=== PATIENT | male | born 1970 | race Caucasian/White ===

== ENCOUNTER 2019-12-19 09:49 | Emergency (ER) | payer OTHER ==
[~2019-12-19] VITALS: Ht 177.8 cm; Wt 61.2 kg
[2019-12-19 10:34] LABS: ABSOLUTE BASOPHILS 0.1 thou/uL (0.0-0.2); ABSOLUTE EOSINOPHILS 0.4 thou/uL (0.0-0.7); ABSOLUTE LYMPHOCYTES 1.4 thou/uL (0.8-5.3); ABSOLUTE MONOCYTES 0.6 thou/uL (0.0-1.2); ABSOLUTE NEUTROPHILS 3.5 thou/uL (1.6-8.1); BASOPHILS 0.9 %; EOSINOPHILS 6.2 %; HEMATOCRIT 46.9 % (42.0-52.0); HEMOGLOBIN 16.1 gm/dL (14.0-18.0); LYMPHOCYTES 23.6 %; MCH 34.5 pg (26.0-34.0); MCHC 34.4 g/dL (28.0-37.0); MCV 100.2 fL (80.0-100.0); MONOCYTES 10.3 %; MPV 9.3 fl. (7.2-11.1); NUCLEATED RBCS 0 /100WBC; PLATELET COUNT* 213 thou/uL (150-400); RBC 4.69 mil/uL (4.50-6.00)
[2019-12-19 10:41] LABS: CALCIUM 8.6 mg/dL (8.5-10.1); POTASSIUM 4.1 mmol/L (3.5-5.1)
[2019-12-19 10:42] LABS: APTT 22.1 Seconds (25.0-31.3); INR 0.9; PROTIME 9.7 Seconds (9.20-11.50)
[2019-12-19] MEDS ORDERED: PREDNISONE 20 M20 M1 PO (10:50)
[2019-12-19] MEDS ORDERED: ZPAK PO (10:50)
[2019-12-19] MEDS ORDERED: VENTOLIN HFA 1818 GM INH (10:50)
[2019-12-19 10:57] LABS: ALBUMIN 3.8 g/dL (3.4-5.0); TOTAL BILIRUBIN 0.5 mg/dL (<0.1-1.0); TOTAL PROTEIN 7.5 g/dL (6.4-8.2)
[2019-12-19 11:16] VITALS: BP 140/90
--- NOTE | 2019-12-19 13:22 | EKG ---
[place] [address] ELECTROCARDIOGRAM REPORT Name: ANNE PEDRAZA Room: [facility]#: [id number] Admission: 12/19/19 Attend Phys: Discharge: 12/19/19 Date of : 66 Date of Service: 12/19/19 1003 Report #: [id number] THIS REPORT FOR: //name// [facility] ED Test Date: 2019-12-19 Test Time: 10:03:42 Pat Name: ANNE PEDRAZA Department: Room: Gender: Senior Controls Engineer: : [id number] Requested By: Christoph Fuentes Order Number: [id number] MD: Samuel Mitchell Measurements Intervals [place] Rate: 75 P: 57 ID: 114 QRS: 73 QRSD: 83 T: 70 QT: 388 QTc: 434 Interpretive Statements Sinus rhythm Borderline short ID interval ST elev, probable normal early repol pattern No previous ECG available for comparison Electronically Signed On 12-19-2019 13:22:10 CDT by Samuel Mitchell [email or web address] <ELECTRONICALLY SIGNED> By: Samuel Mitchell MD, [facility] 12/19/19 1322 1003 1003 Samuel Mitchell MD, FAC /EPI
== END 2019-12-19 11:20 | disposition home or self-care (01) ==
LOC: M.ERS 09:49
PROVIDERS: Family Medicine
DX: J40 Bronchitis, not specified as acute or chronic (principal); F17.210 Nicotine dependence, cigarettes, uncomplicated